=== PATIENT | female | born 1990 | race Caucasian/White ===

== ENCOUNTER 2020-12-25 22:10 | Inpatient (IN) | payer OTHER ==
[2020-12-25] MEDS ORDERED: LIDOCAINE HCL 1% PRESERVATIVE FREE - 30ML VIAL ONE (22:49)
[2020-12-25] MEDS ORDERED: DEXTROSE 5%-LACTATED RINGERS 1,000 ML IV SCH (22:50)
[2020-12-25] MEDS ORDERED: AMPICILLIN SODIUM 2 GM VIAL ONE (22:50)
[2020-12-25] MEDS ORDERED: AMPICILLIN SODIUM 2 GM VIAL IVPB ONE (22:50)
[2020-12-25] MEDS ORDERED: OXYTOCIN 20 UNITS in 0.9% NS 20 UNIT/1,000 ML INFUS.BAG IV ONE (22:50)
[2020-12-25 23:35] LABS: BASO % 0.2 % (0-2.0); EOS % 0.3 % (0-4.5); HEMATOCRIT 37.4 % (32.4-45.2); HEMOGLOBIN 12.3 GM/dL (10.7-15.3); LYMPH % 14.8 % (8-40); MCH 31.4 pg (25.7-33.7); MCHC 32.9 g/dl (32.0-36.0); MEAN CELL VOLUME 95.6 fl (80-96); MEAN PLT VOLUME 12.9 fl (7.5-11.1); MONO % 6.9 % (3.8-10.2); NEUT % 77.8 % (42.8-82.8); PLATELET COUNT 126 K/MM3 (134-434); RBC 3.91 M/mm3 (3.60-5.2); RDW 14.8 % (11.6-15.6); WHITE BLOOD COUNT 13.9 K/mm3 (4.0-10.0)
[2020-12-25 23:42] LABS: INR 0.86 (0.83-1.09); PROTHROMBIN TIME (PATIENT) 10.5 SEC (9.7-13.0)
[2020-12-25 23:45] LABS: ACTIVATED PTT 28.9 SECONDS (25.2-36.5)
[2020-12-26 00:06] LABS: POTASSIUM 4.6 mmol/L (3.5-5.1)
[2020-12-26 00:07] LABS: BLOOD UREA NITROGEN 11.4 mg/dL (7-18); CALCIUM 8.7 mg/dL (8.5-10.1)
[2020-12-26 00:11] LABS: CREATININE 0.6 mg/dL (0.55-1.3); URIC ACID 6.2 mg/dL (2.6-7.2)
[2020-12-26 01:04] LABS: HIV INTERPRETATION NEGATIVE (NEGATIVE)
[2020-12-26] MEDS ORDERED: ACETAMINOPHEN 325 MG TABLET (FP) PO PRN (01:12)
[2020-12-26] MEDS ORDERED: IBUPROFEN 600 MG TABLET (FP) PO PRN (01:12)
[2020-12-26] MEDS ORDERED: METHYLERGONOVINE MALEATE 0.2 MG/1 ML AMP IM PRN (01:12)
[2020-12-26] MEDS ORDERED: WITCH HAZEL 50% (TUCKS) 40 PAD/JAR PAD TP PRN (01:12)
[2020-12-26] MEDS ORDERED: BENZOCAINE 28 GM HEMORRHOIDAL OINTMENT TP PRN (01:12)
[2020-12-26] MEDS ORDERED: BISACODYL 10 MG SUPP.RECT RC PRN (01:12)
[2020-12-26] MEDS ORDERED: BENZOCAINE 20% 57 GM BOTTLE TP PRN (01:12)
[2020-12-26] MEDS ORDERED: D5W-LR W/ 20 UNITS OXYTOCIN 20 UNIT/1,000 ML INFUS.BAG IV SCH (01:15)
[2020-12-26 01:26] LABS: CORD BASE EXCESS -2.3 mmol/L (0-2); CORD HCO3 23.4 mmHg (20-29); CORD PCO2 43.6 mmHg (30-78); CORD pH 7.348 (7.14-7.44)
[2020-12-26 02:16] VITALS: BMI 27.8
[2020-12-26] MEDS ORDERED: OXYTOCIN 20 UNITS in 0.9% NS 20 UNIT/1,000 ML INFUS.BAG IV ONE (02:36)
[2020-12-26] MEDS ORDERED: AMPICILLIN SODIUM 1 GM VIAL IVPB SCH (02:50)
[2020-12-26 09:49] LABS: POC NITRAZINE POS
[2020-12-26] MEDS: PRENATAL VITAMINS W/ FOLIC ACID TABLET (FP) PO SCH (10:28)
[2020-12-26] MEDS: FERROUS SO4 325 MG TABLET (FP) PO SCH ×2 (10:28→21:13)
[2020-12-26 21:40] LABS: BASO % 0.2 % (0-2.0); EOS % 0.6 % (0-4.5); HEMATOCRIT 30.8 % (32.4-45.2); HEMOGLOBIN 10.2 GM/dL (10.7-15.3); LYMPH % 17.4 % (8-40); MCH 31.5 pg (25.7-33.7); MEAN CELL VOLUME 95.7 fl (80-96); MEAN PLT VOLUME 12.6 fl (7.5-11.1); MONO % 8.1 % (3.8-10.2); NEUT % 73.7 % (42.8-82.8); PLATELET COUNT 88 K/MM3 (134-434); RBC 3.22 M/mm3 (3.60-5.2); RDW 14.8 % (11.6-15.6); WHITE BLOOD COUNT 14.8 K/mm3 (4.0-10.0)
[2020-12-26 22:02] LABS: ALBUMIN 2.4 g/dl (3.4-5.0)
[2020-12-26 22:04] LABS: BILIRUBIN,DIRECT 0.1 mg/dL (0.0-0.2)
[2020-12-26 22:07] LABS: BILIRUBIN,TOTAL 0.2 mg/dL (0.2-1); TOT PROT 5.6 g/dl (6.4-8.2)
[2020-12-27 08:02] LABS: BASO % 0.2 % (0-2.0); EOS % 1.1 % (0-4.5); HEMATOCRIT 28.4 % (32.4-45.2); HEMOGLOBIN 9.6 GM/dL (10.7-15.3); LYMPH % 19.7 % (8-40); MCH 32.4 pg (25.7-33.7); MCHC 33.8 g/dl (32.0-36.0); MONO % 7.3 % (3.8-10.2); NEUT % 71.7 % (42.8-82.8); PLATELET COUNT 75 K/MM3 (134-434); RBC 2.95 M/mm3 (3.60-5.2); RDW 14.5 % (11.6-15.6); WHITE BLOOD COUNT 10.7 K/mm3 (4.0-10.0)
[2020-12-27 08:34] VITALS: BP 123/89; PULSE 69; TEMP 98.7
[2020-12-27] MEDS: PRENATAL VITAMINS W/ FOLIC ACID TABLET (FP) PO SCH (10:41)
[2020-12-27] MEDS: FERROUS SO4 325 MG TABLET (FP) PO SCH (10:41)
[2020-12-27] MEDS ORDERED: SENNOSIDES/DOCUSATE COMBO (SENNA PLUS) TABLET (UD) PO PRN (22:00)
== END 2020-12-27 12:50 | disposition home or self-care (01) | DRG 560 ==
LOC: JDEL 22:10 → JLDR 22:20 → J3W 12-26 02:40
PROVIDERS: ADMIT Family Medicine; ATTEND Family Medicine
PROC: 10E0XZZ Delivery of Products of Conception, External Approach (ICD-10-PCS; principal; 2020-12-25)
PROC: 0KQM0ZZ Repair Perineum Muscle, Open Approach (ICD-10-PCS; 2020-12-25)
DX: O48.0 Post-term pregnancy (principal); O70.1 Second degree perineal laceration during delivery; Z3A.40 40 weeks gestation of pregnancy; Z37.0 Single live birth
CPT/HCPCS: 36415; 36600; 59409; 80048; 80076; 82803; 82977; 83010; 83986-QW; 84450; 84460; 84550; 85025; 85045; 85610; 85730; 86762; 86780; 86850; 86900; 86901; 87340; 87389; C9803; U0003